=== PATIENT | female | born 1975 | race Asian ===

== ENCOUNTER 2024-06-08 08:08 | Outpatient (REF) | payer MEDICAID, SELFPAY ==
--- NOTE | ~2024-06-08 | XR_ITS ---
EXAMINATION: XR KNEE RIGHT 2 VIEWS CLINICAL INFORMATION: Pain in unspecified knee M25.569. COMPARISON: None available TECHNIQUE: 3 views of the right knee. FINDINGS: No fracture or dislocation of the right knee. No suprapatellar joint effusion. There is moderate narrowing of the medial joint space height. Small tricompartmental marginal osteophytes. No localized soft tissue swelling. No radiopaque foreign body. XR/XR knee RT 3V IMPRESSION: Mild to moderate degenerative changes of the right knee. Electronically signed by: Khurram Millre MD 08/05/2024 09:15 AM ROBERT
--- NOTE | ~2024-06-08 | XR_ITS ---
EXAMINATION: XR KNEE LEFT 3 VIEWS CLINICAL INFORMATION: Pain in unspecified knee M25.569. COMPARISON: None TECHNIQUE: Three views of the left knee. FINDINGS: No fracture or dislocation. No suprapatellar joint effusion. Mild to moderate narrowing of the medial joint space height. Small tricompartmental marginal osteophytes. No localized soft tissue swelling. No radiopaque foreign body. XR/XR knee LT 3V IMPRESSION: Mild degenerative changes of the left knee. Electronically signed by: Khurram Miller MD 08/05/2024 09:16 AM ROBERT
== END 2024-06-08 08:09 | disposition home or self-care (01) ==
LOC: HO.HOSX 08:08
PROVIDERS: Visit Provider Physician Assistant
DX: M17.0 Bilateral primary osteoarthritis of knee (principal); M25.561 Pain in right knee; M25.562 Pain in left knee
CPT/HCPCS: 20610; 73562; 99212; J1010; J2003

== ENCOUNTER 2024-06-08 09:32 | Outpatient (AMB) | payer MEDICAID, SELFPAY ==
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
[2024-06-08 10:04] VITALS: BMI 26.3
== END 2024-06-08 10:44 | disposition home or self-care (01) ==
PROVIDERS: PCP Physician Assistant; Visit Provider Physician Assistant
DX: M17.0 Bilateral primary osteoarthritis of knee (principal)
CPT/HCPCS: 20610; 99203

== ENCOUNTER 2025-02-08 10:43 | Outpatient (AMB) | payer MEDICAID, SELFPAY ==
--- NOTE | 2025-02-08 10:45 | MHC.OFFVIS ---
Intake Visit Reasons: OV - B/L knee OA, last injections 06/08/24 Intake Note: Vandana is a 48 year old female who presents today with her daughter for a follow up of her bilateral knee OA, last injections 06/08/24 (80). Patient reports her last injection gave her about a couple months of relief and she would like to repeat. Allergies No Known Allergies Allergy (Verified 02/08/25 11:05) HPI HPI OV - B/L knee OA, last injections 06/08/24: Details: Ms. Merlos is a 49-year-old female who presents to the office today for repeat cortisone injections for bilateral knee osteoarthritis. Last injections were administered on 06/08/2024 and gave her good relief. [facility] Social History (Updated 06/08/24 @ 10:04 by Ashok Taveras) Alcohol intake: never Patient Tobacco Use Status: Never used Tobacco Current occupational status: unemployed Review of Systems Const All systems reviewed & are unremarkable except as noted in HPI and below Physical Exam Const General: cooperative and no acute distress Resp Effort & Inspection: normal respiratory effort and able to speak in complete sentences Extrem Other: Bilateral knees: Normal to inspection. No ecchymosis, erythema, or joint effusion. No tenderness to palpation along the medial or lateral joint lines. Full knee extension and flexion. Crepitus is felt with ROM. NVI. Office Procedures AMB Joint Injection/Aspiration Joint Injection/Aspiration Primary Site: right knee Secondary Site: left knee Prep: site was prepped using aseptic technique, ethochloride spray was applied and injection warnings given Injected: 80 mg of, DepoMedrol, with 8 mL of (2% plain lidocaine) and in the joint Approach Used: anterolateral Procedure: The patient tolerated the procedure well, but had some pain with the injection and there was some relief with the local anesthesia Coding 45132 - Bilateral Large Joint Procedure code (CPT) selection complete Assessment & Plan Assessment & Plan (1) Osteoarthritis of knees, bilateral: Code(s): M17.0 - Bilateral primary osteoarthritis of knee Category: Medical Plan The patient was offered cortisone injections in bilateral knees with 80 mg of DepoMedrol. The patient was explained the risks, benefits, and alternatives to receiving this injection. After receiving consent for the injection, the patient had the procedure done while in the office today. The patient tolerated the procedure well with no complications. Follow-up will be PRN, or sooner if needed Coding Level of Care Code Est Pt Level 3 (99418) Diagnoses Osteoarthritis of knees, bilateral M17.0 CPT Codes Coding - - Bilateral Large Joint: - Bilateral Large Joint ([id number])
--- OUTSIDE RECORDS SUMMARY | 2025-02-08 12:11 | XMS_ITS | Clinical Summary ---
Author Organization [facility] Address [address] [place] [address] Care Team Providers Care Retail Client Manager Name Role Phone Malissa Murphy PA-C Primary Care Provider Source Comments PLEASE NOTE, if this patient is a minor, it may be UNLAWFUL to discuss sensitive information that is contained in these records (such as FAMILY PLANNING, MENTAL HEALTH or SUBSTANCE ABUSE) with the minor patient's parent or other person without the patient's specific authorization.[facility] Allergies No known active allergies Medications albuterol HFA 90 mcg/actuation inhalerIndications :Mild persistent asthma without complication ([facility]HS-HCC) Inhale 2 Puffs into the lungs every 4 (four) hours as needed for shortness of breath or wheezing 18 g 5 4 Active diclofenac sodium (VOLTAREN) [address] tabletIndications: Osteoarthritis of both knees, unspecified osteoarthritis type Take 1 Tablet by mouth 2 (two) times daily as needed for other reason (joint pain) 60 Tablet 1 5 Active acetaminophen (TYLENOL) 500 mg tablet Take 2 Tablets by mouth every 6 (six) hours as needed for pain 90 Tablet 1 5 Active caneIndications:Os teoarthritis of both knees, unspecified osteoarthritis type Please dispense 1 cane to be used daily for 99 years 1 Each 5 Active lidocaine (LIDODERM) 5 % patch Place 1 Patch onto the skin daily. Apply 1 patch to the affected area for a maximum of 12 hours, followed by removal for 12 hours. 30 Patch 1 5 Active montelukast (SINGULAIR) 10 mg tabletIndications: Mild persistent asthma without complication (HHS-HCC) Take 1 Tablet by mouth nightly at bedtime 90 Tablet 5 Active omeprazole (PRILOSEC) [address] capsuleIndications :Dyspepsia Take 1 Capsule by mouth every morning before breakfast 90 Capsule 1 5 Active multivitamin tabletIndications: Refugee health examination Take 1 Tablet by mouth once daily 90 Tablet 1 5 Active budesonide-formote roL (SYMBICORT) 160-4.5 mcg/actuation inhalerIndications :Mild persistent asthma without complication ([facility]) Inhale 2 Puffs into the lungs 2 (two) times daily 30.6 g 5 Active zinc oxide 10 % ointmentIndication s:Open wound Apply topically 4 (four) times daily 85 g 5 Active capsaicin (ICY HOT) 0.025 % patchIndications:O steoarthritis of both knees, unspecified osteoarthritis type Place 1 Patch onto the skin every 8 (eight) hours as needed for pain 30 Patch 5 Active Active Problems Problem Noted Date Diagnosed Date Food insecurity 03/26/2024 Financial difficulties 03/26/2024 Lack of housing 03/26/2024 Lack of access to transportation 03/26/2024 Mild persistent asthma without complication ([facility]) 01/07/2024 Refugee health examination 01/07/2024 Asymptomatic microscopic hematuria 01/07/2024 Encounters Date Type Department Care Team Description 12/17/2024 11:40 AM EDT Office Visit [address] [phone] Malissa Murphy PA-C Open wound (Primary Dx); Osteoarthritis of both knees, unspecified osteoarthritis type; Facial rash; Screening mammogram, encounter for 12/06/2024 2:40 PM EDT Office Visit [facility] [address] [place] [phone] [facility] for [facility] examination (Primary Dx) from Last 3 Months Immunizations Immunization Administration Dates Next Due HEP B, PED/ADOL 04/30/2023 Hep B,adult,adjuvanted (HEPLISAV) 01/07/2024 IPV (IPOL) 01/07/2024 Influenza (FLUBLOK),recombinant,injectable,preservative Free 05/27/2024 MMR (MMR II/Priorix) 10/20/2023,04/30/2023 OPV,Unspecified 04/29/2023 PNEUMOCOCCAL CONJUGATE PCV 20 (Prevnar) 09/27/19 Pfizer COVID-19 (Comirnaty), Mrna, Lnp-s, Pf, Delmar-sucrose, 30 Mcg/0.3 Ml, 12yr+ 05/27/2024 TDAP 01/07/2024,12/05/2023 ZOSTER VACCINE, RECOMBINANT (SHINGRIX) Social History Tobacco Use Types Packs/Day Years Used Date Smoking Tobacco: Never Passive Smoke Exposure: Never Smokeless Tobacco: Never Tobacco Cessation:Counseling Given: Yes Alcohol Use Standard Drinks/Week Comments Never 0 (1 standard drink = 0.6 oz pur e alcohol) Social Connections Answer Date Recorded Connectedness 1 03/26/2024 Financial Resource Strain Answer Date R ecorded Financial Resource Strain 2 2023 Stress Answer Date Recorded Stress 1 03/26/2024 Physical Activity Answer Date Recorded Physical Activity 0 11/05/2023 Food Insecurity Answer Date Recorded Food 2 03/26/2024 Transportation Needs Answer Date Record ed Transportation 1 03/26/2024 Housing Stability Answer Date Recorded Housing 2 03/26/2024 Safety and Environment Answer Date Sorin rded Safety 1 03/26/2024 Utilities Answer Date Recorded Utilities 2 03/26/2024 Employment Answer Date Recorded Stress 0 03/26/2024 Comments No Sex and Gender Information Value Date Recorded Sex Assigned at Female 12/06/2023 2:11 PM PDT Legal Sex Female 9:25 AM PDT Gender Identity Female 12/06/2023 2:11 PM PDT Sexual Orientation Straight 12/06/2023 2: 11 PM PDT Last Filed Vital Signs Vital Sign Reading Time Taken Comments Blood Pressure 130/75 12/17/2024 11:50 AM EDT Pulse 86 12/17/2024 11:50 AM EDT Temperature 36.7 ??C (98.1 ??F) 12/17/2024 11:50 AM E DT Respiratory Rate 16 12/17/2024 11:50 AM EDT Oxygen Saturation 98% 12/17/2024 11:50 AM EDT Inhaled Oxygen Concentration - - Weight 62.8 kg (138 lb 6.4 oz) 09/27/2024 4:08 P M EST Height 154.9 cm (5' 1 ) 09/27/2024 4:08 PM EST Body Mass Index 26.15 09/27/2024 4:08 PM EST Plan of Treatment Upcoming Encounters Date Type Department Care Team ([facility] st Contact Info) Description 06/08/2025 1:40 PM EDT Office Visit [facility] [address] [place] [phone] Ronald Cruz, [facility] [address] [place] [address] Health Maintenance Due Date Last Done Comments HPV Screening [address] Colonography 2019 Colonoscopy 2019 Flexible Sigmoidoscopy 2019 Imm-Zoster, Recombinant (2 of 2) 11/22/2024 09/27/19 Dental Perio Charting 04/17/2025 04/15/2024 FIT/gFOBT 05/18/2025 05/18/2024 Annual Wellness (Adult): Ind icated (All Coverage) 06/29/2025 06/29/2024 Anxiety Screening 09/27/2025 09/27/2024 Dental BW 12/08/2025 12/06/2024, 04/15/2024 Dental Examination 12/08/2025 12/06/2024, 04/15/2024 Dental Prophy 12/08/2025 12/06/2024 Hypertension Screening (#1) 12/17/2025 Tobacco Screening 12/17/2025 12/17/2024 Diabetes Screening 01/06/2027 01/07/2024, 12/05/2023 Breast Cancer Screening (Mammogram) 02/01/202702/01 Colorectal Cancer Screening 05/18/2027 Fecal DNA 05/18/2027 05/18/2024 Pap Smear 06/29/2027 06/29/2024 Dental FMX/Pano 04/17/2029 04/15/2024 Cervical Cancer Screening 06/29/2029 Pap + HPV 06/29/2029 06/29/2024 Imm-DTaP/Tdap/Td (3 - Td or Tdap) 01/06/2034 024, 12/05/2023 HIV Screening Completed 12/05/2023 Hepatitis B Screening Completed 12/05/2023, 024 Hepatitis C Screening Completed 12/05/2023 Imm-Hepatitis B Discontinued 01/07/2024, 04/30/2023 [id number] Completed 05/27/2024 Imm-Influenza Completed 05/27/2024 Alcohol and Drug Screen Completed 09/27/19, 05/13/2024, 03/26/2024 Depression Annual Screen Completed 09/27/2024 Imm-Pneumococcal Completed 09/27/2024 Cervical Ablation/Cold-Knife Conization Discontinued Cervical Cryotherapy Discontinued Colposcopy Discontinued Endometrial Biopsy Discontinued Excision/Leep Discontinued HPV Genotyping Discontinued Vaginal Pap Discontinued Vulvoscopy Discontinued Procedures Procedure Name Priority Date/Time Associated Diagnosis Comments HISTORIC MAMMOGRAM 02/01/2025 3: 00 AM EDT DENTAL CASE MANAGEMENT - MOTIVATIONAL INTV Routine 12/06/2024 2:40 PM EDT Encounter for dental examination PROPHYLAXIS - ADULT Routine 12/06/2024 2 :40 PM EDT Encounter for dental examination BITEWINGS - FOUR RADIOGRAPHIC IMAGES Routine 12/06/2024 2:40 PM EDT Encounter for dental examination PERIODIC ORAL EVALUATION ESTABLISHED PATIENT Routine 12/06/2024 2:40 PM EDT Encounter for dental examination CARIES RISK ASSESSMENT & DOC FINDING MOD RISK Routine 12/06/2024 2:40 PM EDT Encounter for dental examination NUTRITIONAL COUNSELING CONTROL OF DENTAL DISEASE Routine 12/06/2024 2:40 PM EDT Encounter for dental examination ORAL HYGIENE INSTRUCTIONS Routine 12/06/2024 2:40 PM EDT Encounter for dental examination ORAL CANCER SCREENING Routine 12/06/2024 2:40 PM EDT Encounter for dental examination CASE PRESENTATION SUBS DTL & EXTENSIVE TX PLN Routine 12/06/2024 2:40 PM EDT Encounter for dental examination OTHER ORDERS SCANNED DOCUMENT 11/30/2024 3:00 AM EDT THIN PREP IMAGE PAP + HPV RNA E6/E7 W/RFLX HPV 16, 18/45 Routine 06/29/2024 1:17 PM EST Encounter for Papanicolaou smear for cervical cancer screening COLOGUARD Routine 05/18/2024 3:00 AM EDT Colon cancer screening Full INTRAORAL - COMP SERIES OF RADIOGRAPHIC IMAGES Routine 04/15/2024 1:40 PM EDT Encounter for dental examination COMPREHENSIVE METABOLIC PANEL Routine 01/07/2024 2:31 PM EDT Refugee health examination HIV 1/2 AG & AB W/RFLX (4TH GEN) Routine 12/05/2023 3:03 PM EDT Refugee health examination Screening-pulmonary TB HEPATITIS B SURFACE AG, EIA WITH REFLEX CONFIRM Routine 12/05/2023 3:03 PM EDT Refugee health examination Screening-pulmonary TB HEPATITIS C AB W/RFLX HCV RNA, QT, RT PCR Routine 12/05/2023 3:03 PM EDT Refugee health examination Screening-pulmonary TB from Last 3 Months or Most Recently Relevant to Health Maintenance Results * HISTORIC MAMMOGRAM (02/01/2025 3:00 AM EDT) 02/01/2025 3:00 AM EDT Malissa Murphy PA-C IMG MAMMO Final Result * OTHER ORDERS SCANNED DOCUMENT (11/30/2024 3:00 AM EDT) 11/30/2024 3:00 AM EDT Malissa Murphy PA-C SCAN OTHER ORDERS Final Resu lt * THIN PREP IMAGE PAP + HPV RNA E6/E7 W/RFLX HPV 16, 18/45 (06/29/2024 1:17 PM EST) CLINICAL INFORMATION See Note [employer] Comment:ROUTINE EXAM LMP See Note [employer] Comment:NONE GIVEN PREV. PAP See Note [employer] Comment:NONE GIVEN PREV. BX See Note [employer] Comment:NONE GIVEN SOURCE See Note [employer] Comment:Cervix STATEMENT OF ADEQUACY See Note [employer] Comment:SATISFACTORY FOR SHU LUATION INTERPRETATION/RESU LT See Note [employer] Comment: Cytology Results: Negative for intraepithelial lesion or malignancy. Atrophic pattern; predominantly parabasal cells COMMENT See Note [employer] Comment: This Pap test has been evaluated with computer assisted technology. Microscopic features present suggestive of an interfering substance, including cellular debris, mucus, or possible lubricant (patient or provider use). Use of lubricant is not recommended. BONDING MOLDER See Note [employer] [facility] Comment: KITA CT(ASCP) CT screening location: [address] ??[address] COMMENT [facility] HPV MRNA E6/E7 Not Detected Not Detected [facility] Comment: Methodology: High School Music Director-Mediated Amplification This assay detects E6/E7 viral messenger RNA (mRNA) from 14 high-risk HPV types (16,18,31,33,35,39,45,51,52,56,58,59,66,68). Cervical sources are required for HPV testing. If a vaginal source from a patient who has had a total hysterectomy with removal of cervix was submitted, please contact the testing laboratory for alternative testing options. For additional information, please refer to http://education.[employer]/faq/GPA418d4 (This link if provided for information/ educational purposes only.) Swab Cervix uteri structure / Unknown 06/29/2024 1:17 PM EST 06/30/2024 6:10 AM EST Narrative [employer] [facility] - 07/03/2024 4:42 PM EST EXPLANATORY NOTE: The Pap is a screening test for cervical cancer. It is not a diagnostic test and is subject to false negative and false positive results. It is most reliable when a satisfactory sample, regularly obtained, is submitted with relevant clinical findings and history, and when the Pap result is evaluated along with historic and current clinical information. us Ismael Kraft PA-C LAB - PATHOLOGY AND CYTOLOGY AMBULATORY Final Result [facility] [address] [address], [facility] [address] [address] * COLOGUARD (05/18/2024 3:00 AM EDT) Stool Stool specimen / Unknown 05/18/2024 3:00 AM EDT Malissa Murphy PA-C LAB BODY FLUIDS AND STOOLS Lisa BARRERA Edited Result - Final [employer] [address] [facility], [address] [facility] [id number] [place] [address], [place] [phone] * (ABNORMAL) COMPREHENSIVE METABOLIC PANEL (01/07/2024 2:31 PM EDT) GLUCOSE 98 65 - 139 mg/dL [facility] Comment: ?Non-fasting reference interval UREA NITROGEN (BUN) 15 7 - 25 mg/dL [facility] CREATININE (blood) 0.48(L) 0.50 - 0.99 mg/dL [facility] EGFR 116 > OR = 60 mL/min/1. 73m2 [facility] BUN/CREATININE RATIO 31(H) 6 - 22 (calc) [facility] SODIUM 140 135 - 146 mmol/L [facility] POTASSIUM 4.4 3.5 - 5.3 mmol/L [facility] CHLORIDE 104 98 - 110 mmol/L [facility] CARBON DIOXIDE 30 20 - 32 mmol/L [facility] CALCIUM 9.7 8.6 - 10.2 mg/dL [facility] PROTEIN, TOTAL 6.9 6.1 - 8.1 g/dL [facility] ALBUMIN 4.3 3.6 - 5.1 g/dL [facility] GLOBULIN 2.6 1.9 - 3.7 g/dL (calc) [facility] ALBUMIN/GLOBULI N RATIO 1.7 1.0 - 2.5 (calc) [facility] BILIRUBIN, TOTAL 0.2 0.2 - 1.2 mg/dL [facility] ALKALINE PHOSPHATASE 85 31 - 125 U/L [facility] AST 11 10 - 35 U/L [facility] ALT 10 6 - 29 U/L [facility] Blood Blood / Unknown 01/07/2024 2 :31 PM EDT 01/07/2024 2:32 PM EDT Narrative [employer] [facility] - 01/08/2024 4:40 AM EDT FASTING:NO Denise Garcia PROFESSOR OF RELIGION LAB - BLOOD DRAW Final Re sult Performing Organization Address [facility] Co de Phone Number [employer] [address] [address], [employer] [address] [address] * HEP C AB W/RLFX HCV RNA (for all adults >/= 18 yrs, all women, and all unaccompanied minors) (12/05/2023 3:03 PM EDT) Pathologist [facility] HEPATITIS C ANTIBODY NON-REACT JESSICA NON-REACT JESSICA [facility] Comment: HCV antibody was non-reactive. There is no laboratory evidence of HCV infection. In most cases, no further action is required. However, if recent HCV exposure is suspected, a test for HCV RNA (test code 60905) is suggested. For additional information please refer to http://education.[employer]/faq/OSW15v5 (This link is being provided for informational/ educational purposes only.) Blood Blood / Unknown 12/05/2023 3 :03 PM EDT 12/05/2023 3:04 PM EDT Narrative [employer] [facility] - 12/11/2023 6:10 PM EDT COLLECTION KIT GIVEN TO PATIENT. PATIENT ADVISED TO RETURN. Marleni Felix PA-C LAB - BLOOD DRAW Edited Resu lt - Final Performing Organization Address [facility]/ZIP Co de Phone Number [facility] [address] [address], [facility] [employer] [address] [address] * HIV 1/2 AG & AB W/RFLX (Required for 13 yrs to 64 yrs) (12/05/2023 3:03 PM EDT) Pathologist [facility] HIV AG/AB, 4TH GEN NON-REAC TIVE NON-REAC TIVE [facility] Comment: HIV-1 antigen and HIV-1/HIV-2 antibodies were not detected. There is no laboratory evidence of HIV infection. PLEASE NOTE: This information has been disclosed to you from records whose confidentiality may be protected by state law. ??If your state requires such protection, then the state law prohibits you from making any further disclosure of the information without the specific written consent of the person to whom it pertains, or as otherwise permitted by law. A general authorization for the release of medical or other information is NOT sufficient for this purpose. ?? For additional information please refer to http://[employer]/faq/DGI428 (This link is being provided for informational/ educational purposes only.) The performance of this assay has not been clinically validated in patients less than 2 years old. Blood Blood / Unknown 12/05/2023 3 :03 PM EDT 12/05/2023 3:04 PM EDT Narrative [employer] - 12/11/2023 6:10 PM EDT COLLECTION KIT GIVEN TO PATIENT. PATIENT ADVISED TO RETURN. Marleni ANANDC LAB - BLOOD DRAW Final Resul t Performing Organization Address [facility] de Phone Number [employer] [address] [place] [id number], [facility] [address] [address] * HEPATITIS B SURFACE AG, EIA WITH REFLEX CONFIRM (12/05/2023 3:03 PM EDT) HEPATITIS B SURFACE ANTIGEN NON-REACT JESSICA NON-REACT JESSICA [facility] COMMENT [facility] [employer] [facility] Blood Blood / Unknown 12/05/2023 3 :03 PM EDT 12/05/2023 3:04 PM EDT Narrative [employer] - 12/11/2023 6:10 PM EDT COLLECTION KIT GIVEN TO PATIENT. PATIENT ADVISED TO RETURN. For additional information, please refer to http://[employer]/faq/NWM911 (This link is being provided for informational/ educational purposes only.) Marleni ROMAN-C LAB - BLOOD DRAW Edited Resu lt - Final Performing Organization Address [facility] Co de Phone Number [employer] [address] [place] [id number], [facility] [address] [place] [address] from Last 3 Months or Most Recently Relevant to Health Maintenance Insurance [address] [employer] [place] DENTAL Care Teams Retail Client Manager Relationship Specialty Start Date End Date Malissa Murphy PA-C [address] [place] [address] PCP - General Internal Medicine 02/18/24
== END 2025-02-08 11:05 | disposition home or self-care (01) ==
LOC: HO.HOS 10:43
PROVIDERS: PCP Physician Assistant; Visit Provider Physician Assistant
DX: M17.0 Bilateral primary osteoarthritis of knee (principal)
CPT/HCPCS: 20610; 99213

== ENCOUNTER → 2025-02-08 10:43 | Outpatient (BNVA) | payer MEDICAID, SELFPAY | PROVIDERS: PCP Physician Assistant; Visit Provider Physician Assistant | DX: M17.0 Bilateral primary osteoarthritis of knee (principal) | CPT/HCPCS: 20610; 99212; J1010; J2003 ==